=== PATIENT | female | born 1990 | race Caucasian/White ===

== ENCOUNTER 2021-11-09 15:34 | Observation (INO) | payer OTHER ==
[2021-11-09] MEDS ORDERED: Sodium Chloride 0.9% 1000 ML 1,000 ML ONE (16:11)
[2021-11-09] MEDS ORDERED: SUBLIMAZE 100 MCG/2 ML IV ONE (16:11)
[2021-11-09] MEDS ORDERED: Sodium Chloride 0.9% 1000 ML 1,000 ML IV STA (16:11)
[2021-11-09] MEDS ORDERED: Zofran 4 MG/2 ML VIAL IV ONE (16:11)
[2021-11-09] MEDS ORDERED: SUBLIMAZE 100 MCG/2 ML ONE (16:11)
[2021-11-09] MEDS ORDERED: Zofran 4 MG/2 ML VIAL ONE (16:11)
--- NOTE | 2021-11-09 16:18 | ERPHSYRPT ---
- History of Present Illness Exam Limitations: clinical condition <ORALIA MELARA - Last Filed: 11/09/21 22:45> - History of Present Illness Historian: patient Exam Limitations: no limitations Patient Subjective Stated Complaint: Abdominal pain- RUQ pain Triage Nursing Assessment: Patient ambulated back to ED and transferred self to bed. Patient A+O X3. Patient's skin pink, warm and dry. Patient complains of RUQ pain 9/10 constant sharp pain. Rebound tenderness noted to RUQ. Patient complains of nausea and diarrhea. Patient's eye noted to be a yellowish tint. Abdomen soft and round with BS X 4. Timing/Duration: other (2days) Quality: sharpness, stabbing Abdominal Pain Onset Location: RUQ, epigastric Pain Radiation: back Severity of Pain-Max: severe Severity of Pain-Current: severe Modifying Factors: Improves With: vomiting. Worsens With: analgesics, antacids, breathing, coughing, defecating, eating, exercise, lying down, movement, palpation, rest, urinating, position, walking Associated Symptoms: back, loss of appetite, nausea, vomiting, No chest pain, No diaphoresis, No diarrhea, No fever/chills, No fatigue, No headache, No heartburn, No neck pain, No rash, No shortness of breath, No syncope, No weakness Previous symptoms: no prior history Hx Influenza Vaccination/Date Given: No Hx Pneumococcal Vaccination/Date Given: No Immunizations Up to Date: Yes <MICHELLE GOODSON - Last Filed: 11/12/21 07:43> - History of Present Illness Time Seen by Provider: 11/09/21 19:30 Physician History: 31 yo Wf w epigastric/RUQ pain x2 days. Pain is 9/10, described as sharp, w radiation to her back. She has had N/V wo hematemesis/diarrhea/melena/hematochezia/dysuria/hematuria/fever/cough. (MICHELLE GOODSON) Allergies/Adverse Reactions: No Known Drug Allergies Allergy (Unverified 11/09/21 15:53) Home Medications: Levothyroxine Sodium 50 Mcg [Synthroid 50 Mcg] 1 tab PO DAILY 11/09/21 [History] Travel Risk - International Travel Have you traveled outside of the country in past 3 weeks: No - Coronavirus Screening Are you exhibiting any of the following symptoms?: No Close contact with a COVID-19 positive Pt in past 14-21 Days: No - Vaccine Status Have you recieved a Covid-19 vaccination: No <MICHELLE GOODSON - Last Filed: 11/12/21 07:43> - Review of Systems Constitutional: No Symptoms Eyes: No Symptoms Ears, Nose, & Throat: No Symptoms Respiratory: No Symptoms Cardiac: No Symptoms Abdominal/Gastrointestinal: No Symptoms, Abdominal Pain, Nausea, Vomiting Genitourinary Symptoms: No Symptoms Musculoskeletal: No Symptoms Skin: No Symptoms Neurological: No Symptoms Psychological: No Symptoms Endocrine: No Symptoms Hematologic/Lymphatic: No Symptoms Immunological/Allergic: No Symptoms <MICHELLE GOODSON - Last Filed: 11/12/21 07:43> - Past Medical History Pertinent Past Medical History: Yes Neurological History: No Pertinent History Cardiac History: No Pertinent History Respiratory History: No Pertinent History Endocrine Medical History: Hypothyroidism Musculoskeletal History: No Pertinent History GI Medical History: No Pertinent History History: No Pertinent History Psycho-Social History: No Pertinent History Female Reproductive Disorders: No Pertinent History - Past Surgical History Past Surgical History: Yes Neuro Surgical History: No Pertinent History Cardiac: No Pertinent History Respiratory: No Pertinent History Gastrointestinal: Other Genitourinary: No Pertinent History Musculoskeletal: No Pertinent History Female Surgical History: No Pertinent History Other Surgical History: Gastric sleeve 2020 - Social History Smoking Status: Never smoker Exposure to second hand smoke: No Drug Use: none Patient Lives Alone: No Significant Family History: no pertinent family hx - Female History Hx Last Menstrual Period: Currently Hx Now: No <APARNAMICHELLE HEALY - Last Filed: 11/12/21 07:43> - Physical Exam General Appearance: no apparent distress Eye Exam: PERRL/EOMI, eyes nml inspection Ears, Nose, Throat Exam: normal ENT inspection, TMs normal, pharynx normal, moist mucous membranes Neck Exam: normal inspection, non-tender, supple, full range of motion, No meningismus, No mass, No Brudzinski, No Kernig's Respiratory Exam: normal breath sounds, lungs clear, airway intact Cardiovascular Exam: regular rate/rhythm, normal heart sounds, normal peripheral pulses, capillary refill <2 sec, No murmur Gastrointestinal/Abdomen Exam: soft, tenderness (RUQ/epigastric TTP w guarding but no rebound) Back Exam: CVA tenderness (Mild R) Extremity Exam: normal inspection, normal range of motion Neurologic Exam: alert, oriented x 3, cooperative, 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, normal mood/affect, nml cerebellar function, nml station & gait, sensation nml, No motor deficits, No sensory deficit Skin Exam: normal color, warm, dry Lymphatic Exam: No adenopathy SpO2 Interpretation: normal SpO2: 97 O2 Delivery: Room Air <MICHELLE GOODSON - Last Filed: 11/12/21 07:43> - Nursing Vital Signs Nursing Vital Signs: Initial Vital Signs Temperature 98.5 F 11/09/21 15:56 Pulse Rate 69 11/09/21 15:56 Respiratory Rate 18 11/09/21 15:56 Blood Pressure 149/64 11/09/21 15:56 O2 Sat by Pulse Oximetry 97 11/09/21 15:56 Pain Scale Pain Intensity 5 Hypertensive (MICHELLE GOODSON) Ordered Tests: Medication Summary Discontinued Medications Generic Name Dose Route Start Last Admin Trade Name Freq PRN Reason Stop Dose Admin Acetaminophen 650 mg 11/10/21 12:49 11/10/21 13:14 Acetaminophen 325 Mg Tablet PO 12/10/21 12:48 650 mg Q4H PRN PRN Administration MILD PAIN Fentanyl Citrate 100 mcg 11/09/21 16:11 11/09/21 16:21 Fentanyl Citrate 100 Mcg/2 Ml* Vial IV 11/09/21 16:12 100 mcg STAT ONE Administration Fentanyl Citrate Confirm 11/09/21 16:11 Fentanyl Citrate 100 Mcg/2 Ml* Vial Administered 11/09/21 16:12 Dose 100 mcg .ROUTE .STK-MED ONE Hydromorphone HCl 1 mg 11/09/21 17:21 11/09/21 17:23 Hydromorphone 1 Mg/1ml Inj 1 Mg/Ml Syringe IV 11/09/21 17:22 1 mg STAT ONE Administration Hydromorphone HCl Confirm 11/09/21 17:21 Hydromorphone 1 Mg/1ml Inj 1 Mg/Ml Syringe Administered 11/09/21 17:22 Dose 1 mg .ROUTE .STK-MED ONE Hydromorphone HCl 1 mg 11/09/21 23:04 11/10/21 19:27 Hydromorphone 1 Mg/1ml Inj 1 Mg/Ml Syringe IV 11/14/21 23:03 1 mg Q4H PRN PRN Administration PAIN Sodium Chloride 1,000 mls @ 999 mls/hr 11/09/21 16:11 11/09/21 17:22 Sodium Chloride 0.9% 1000 Ml IV 11/09/21 17:11 Infused .Q1H1M STA Infusion Sodium Chloride Confirm 11/09/21 16:11 Sodium Chloride 0.9% 1000 Ml Administered 11/09/21 16:12 Dose 1,000 mls @ ud .ROUTE .STK-MED ONE Piperacillin Sod/Tazobactam 100 mls @ 200 mls/hr 11/09/21 20:48 11/09/21 20:56 Sod 3.375 gm/ Sodium Chloride IV 11/09/21 21:17 200 mls/hr STAT ONE Administration Sodium Chloride Confirm 11/09/21 20:55 Sodium Chloride 0.9% 100 Ml Bag Administered 11/09/21 20:56 Dose 100 mls @ ud .ROUTE .STK-MED ONE Sodium Chloride 1,000 mls @ 100 mls/hr 11/09/21 23:04 11/10/21 22:02 Sodium Chloride 0.9% 1000 Ml IV 12/09/21 23:03 100 mls/hr .Q10H RANDI Administration Piperacillin Sod/Tazobactam 100 mls @ 200 mls/hr 11/10/21 00:00 11/10/21 07:40 Sod 3.375 gm/ Sodium Chloride IV 11/13/21 00:00 Not Given Q6HT RANDI Sodium Chloride Confirm 11/10/21 00:31 Sodium Chloride 100ml Mini-Bag Plus Administered 11/10/21 00:32 Dose 100 mls @ ud IV .STK-MED ONE Piperacillin Sod/Tazobactam 100 mls @ 200 mls/hr 11/10/21 12:00 11/10/21 17:44 Sod 3.375 gm/ Sodium Chloride IV 11/13/21 11:59 200 mls/hr Q6HT RANDI Administration Levothyroxine Sodium 50 mcg 11/10/21 15:00 11/10/21 14:59 Levothyroxine Sodium 50 Mcg Tablet PO 12/10/21 14:59 Not Given DAILY RANDI Ondansetron HCl 4 mg 11/09/21 16:11 11/09/21 16:21 Ondansetron Hcl 4 Mg/2 Ml Vial IV 11/09/21 16:12 4 mg STAT ONE Administration Ondansetron HCl Confirm 11/09/21 16:11 Ondansetron Hcl 4 Mg/2 Ml Vial Administered 11/09/21 16:12 Dose 4 mg .ROUTE .STK-MED ONE Ondansetron HCl 4 mg 11/09/21 23:04 11/10/21 19:27 Ondansetron Hcl 4 Mg/2 Ml Vial IV 12/09/21 23:03 4 mg Q6H PRN PRN Administration NAUSEA/VOMITING Piperacillin Sod/Tazobactam Sod Confirm 11/09/21 20:53 Piperacillin/Tazobactam Sodium 3.375 Gm Vial Administered 11/09/21 20:54 Dose 3.375 gm IV .STK-MED ONE Piperacillin Sod/Tazobactam Sod Confirm 11/10/21 00:31 Piperacillin/Tazobactam Sodium 3.375 Gm Vial Administered 11/10/21 00:32 Dose 3.375 gm IV .STK-MED ONE Lab/Rad Data: Laboratory Result Diagrams 11/09/21 16:20 11/09/21 16:20 Laboratory Results 11/09/21 11/09/21 11/09/21 Range/Units 21:32 16:20 16:20 WBC (4.0-10.5) K/mm3 RBC (4.1-5.4) M/mm3 Hgb (12.0-16.0) gm/dl Hct (35-47) % MCV (78-100) fl MCH (26-32) pg MCHC (32-36) g/dl RDW (11.5-14.0) % Plt Count (150-450) K/mm3 MPV (7.5-11.0) fl Gran % (36.0-66.0) % Eos # (Auto) (0-0.5) Absolute Lymphs (auto) (1.0-4.6) Absolute Monos (auto) (0.0-1.3) Lymphocytes % (24.0-44.0) % Monocytes % (0.0-12.0) % Eosinophils % (0.00-5.0) % Basophils % (0.0-0.4) % Absolute Granulocytes (1.4-6.9) Basophils # (0-0.4) Sodium 138 (137-145) mmol/L Potassium 3.5 (3.5-5.1) mmol/L Chloride 105 (98-107) mmol/L Carbon Dioxide 22 (22-30) mmol/L Anion Gap 14.1 (5-15) MEQ/L BUN 13 (7-17) mg/dL Creatinine 0.73 (0.52-1.04) mg/dL Estimated GFR > 60.0 ML/MIN Glucose 92 (74-106) mg/dL Calcium 8.9 (8.4-10.2) mg/dL Total Bilirubin 1.60 H (0.2-1.3) mg/dL AST 269 H (14-36) U/L ALT 382 H (0-35) U/L Alkaline Phosphatase 176 H (38-126) U/L Troponin I < 0.012 (0.000-0.034) ng/mL Serum Total Protein 7.0 (6.3-8.2) g/dL Albumin 3.9 (3.5-5.0) g/dL Amylase 49 (30-110) U/L Lipase 84 (23-300) U/L Urine Color (YELLOW) Urine Appearance (CLEAR) Urine pH (5-6) Ur Specific [place] (1.005-1.025) Urine Protein (Negative) Urine Ketones (NEGATIVE) Urine Blood (0-5) Bryan/ul Urine Nitrite (NEGATIVE) Urine Bilirubin (NEGATIVE) Urine Urobilinogen (0-1) mg/dL Ur Leukocyte Esterase (NEGATIVE) Urine WBC (Auto) (0-5) /HPF Urine RBC (Auto) (0-2) /HPF U Epithel Cells (Auto) (FEW) /HPF Urine Bacteria (Auto) (NEGATIVE) /HPF Urine Mucus (Auto) (NEGATIVE) /HPF Urine Culture Reflexed (NO) Urine Glucose (NEGATIVE) mg/dL Influenza Type A Ag NEGATIVE (NEGATIVE) Influenza Type B Ag NEGATIVE (NEGATIVE) RSV (PCR) NEGATIVE (Negative) SARS-CoV-2 (PCR) NEGATIVE (NEGATIVE) 11/09/21 11/09/21 Range/Units 16:20 16:19 WBC 8.4 (4.0-10.5) K/mm3 RBC 3.94 L (4.1-5.4) M/mm3 Hgb 11.1 L (12.0-16.0) gm/dl Hct 33.2 L (35-47) % MCV 84.3 (78-100) fl MCH 28.2 (26-32) pg MCHC 33.4 (32-36) g/dl RDW 15.0 H (11.5-14.0) % Plt Count 318 (150-450) K/mm3 MPV 9.4 (7.5-11.0) fl Gran % 74.2 H (36.0-66.0) % Eos # (Auto) 0.05 (0-0.5) Absolute Lymphs (auto) 1.49 (1.0-4.6) Absolute Monos (auto) 0.57 (0.0-1.3) Lymphocytes % 17.8 L (24.0-44.0) % Monocytes % 6.8 (0.0-12.0) % Eosinophils % 0.6 (0.00-5.0) % Basophils % 0.6 (0.0-0.4) % Absolute Granulocytes 6.21 (1.4-6.9) Basophils # 0.05 (0-0.4) Sodium (137-145) mmol/L Potassium (3.5-5.1) mmol/L Chloride (98-107) mmol/L Carbon Dioxide (22-30) mmol/L Anion Gap (5-15) MEQ/L BUN (7-17) mg/dL Creatinine (0.52-1.04) mg/dL Estimated GFR ML/MIN Glucose (74-106) mg/dL Calcium (8.4-10.2) mg/dL Total Bilirubin (0.2-1.3) mg/dL AST (14-36) U/L ALT (0-35) U/L Alkaline Phosphatase (38-126) U/L Troponin I (0.000-0.034) ng/mL Serum Total Protein (6.3-8.2) g/dL Albumin (3.5-5.0) g/dL Amylase (30-110) U/L Lipase (23-300) U/L Urine Color MUNDO (YELLOW) Urine Appearance CLOUDY (CLEAR) Urine pH 5.0 (5-6) Ur Specific [place] 1.030 (1.005-1.025) Urine Protein 30 (Negative) Urine Ketones TRACE (NEGATIVE) Urine Blood LARGE (0-5) Bryan/ul Urine Nitrite NEGATIVE (NEGATIVE) Urine Bilirubin SMALL (NEGATIVE) Urine Urobilinogen 4 (0-1) mg/dL Ur Leukocyte Esterase TRACE (NEGATIVE) Urine WBC (Auto) 6-10 (0-5) /HPF Urine RBC (Auto) 3-5 (0-2) /HPF U Epithel Cells (Auto) RARE (FEW) /HPF Urine Bacteria (Auto) FEW (NEGATIVE) /HPF Urine Mucus (Auto) MANY (NEGATIVE) /HPF Urine Culture Reflexed YES (NO) Urine Glucose NEGATIVE (NEGATIVE) mg/dL Influenza Type A Ag (NEGATIVE) Influenza Type B Ag (NEGATIVE) RSV (PCR) (Negative) SARS-CoV-2 (PCR) (NEGATIVE) - Progress Discussed with : Alfredito Will see patient in: hospital (observation) Counseled pt/family regarding: lab results, diagnosis, rad results <ORALIA MELARA - Last Filed: 11/09/21 22:45> - Progress Progress: improved <MICHELLE GOODSON - Last Filed: 11/12/21 07:43> - Progress Progress Note: Patient endorsed to Dr. Melara at approximately [address] abdomen pelvis reveals new borderline gallbladder wall thickening without stones or biliary distention. Suspected acalculous cholecystitis. Laboratory work-up reveals a transaminitis with elevated total bilirubin and alkaline phosphatase. Urinary tract infection observed as well. Zosyn antibiotic administered. Will contact general surgery and admit to Dr. Torres pending Covid testing 11/09/21 20:[address] Torres accepts admission to observation. Dr. Echevarria accepts consultation. Plan of care discussed with patient. She agrees to [facility] evaluation and treatment. Portions of this note were created with voice recognition technology. There may be grammatical, spelling, punctuation or sound alike errors 11/09/21 22:45 (ORALIA MELARA) 11/09/21 19:13 Fentanyl 100umg IV/4mg IV Zofran 1L NS bolus 1mg IV Dilaudid (MICHELLE GOODSON) - Departure Departure Disposition: Observation Critical Care Time: No <ORALIA MELARA - Last Filed: 11/09/21 22:45> <MICHELLE GOODSON - Last Filed: 11/12/21 07:43> - Departure Clinical Impression: Acute acalculous cholecystitis, Transaminitis, Total bilirubin, elevated, Elevated alkaline phosphatase level, Abdominal pain Urinary tract infection Qualifiers: Urinary tract infection type: acute cystitis Hematuria presence: without hematuria Qualified Code(s): N30.00 - Acute cystitis without hematuria Condition: Stable
[2021-11-09 16:36] LABS: Absolute Neutrophil Ct (ANC) 6.21 (1.4-6.9); Basophil (Absolute #) 0.05 (0-0.4); Eosinophil % 0.6 % (0.00-5.0); Eosinophil (Absolute #) 0.05 (0-0.5); Hematocrit 33.2 % (35-47); Hemoglobin 11.1 gm/dl (12.0-16.0); Lymphocyte (Absolute #) 1.49 (1.0-4.6); Lymphocytes % 17.8 % (24.0-44.0); Mean Cell Volume 84.3 fl (78-100); Mean Corpuscular Hemoglobin 28.2 pg (26-32); Mean Corpuscular Hgb Concent. 33.4 g/dl (32-36); Mean Platelet Volume 9.4 fl (7.5-11.0); Monocyte (Absolute #) 0.57 (0.0-1.3); Monocytes % 6.8 % (0.0-12.0); Neutrophil % 74.2 % (36.0-66.0); Platelet Count 318 K/mm3 (150-450); Red Blood Count 3.94 M/mm3 (4.1-5.4); White Blood Count 8.4 K/mm3 (4.0-10.5)
[2021-11-09 16:50] LABS: Appearance CLOUDY (CLEAR); Bacteria FEW /HPF (NEGATIVE); Bilirubin SMALL (NEGATIVE); Blood LARGE Ery/ul (0-5); Epithelial Cells RARE /HPF (FEW); Glucose NEGATIVE (NEGATIVE); Ketones TRACE (NEGATIVE); Leukocyte Esterase TRACE (NEGATIVE); Mucus MANY /HPF (NEGATIVE); Nitrite NEGATIVE (NEGATIVE); Protein,Urine Dip 30 (Negative); Urobilinogen 4 mg/dL (0-1)
[2021-11-09] MEDS ORDERED: Hydromorphone 1 mg/ml Injection ONE (17:21)
[2021-11-09] MEDS ORDERED: Hydromorphone 1 mg/ml Injection IV ONE (17:21)
[2021-11-09 17:49] LABS: ALBUMIN 3.9 g/dL (3.5-5.0); ALKALINE PHOSPHATASE 176 U/L (38-126); AMYLASE 49 U/L (30-110); ANION GAP 14.1 MEQ/L (5-15); BLOOD UREA NITROGEN 13 mg/dL (7-17); CHLORIDE 105 mmol/L (98-107); Calcium 8.9 mg/dL (8.4-10.2); Carbon Dioxide 22 mmol/L (22-30); Creatinine 1 0.73 mg/dL (0.52-1.04); EST GLOMERULAR FILTRATION RATE > 60.0 ML/MIN; Glucose 92 mg/dL (74-106); LIPASE 84 U/L (23-300); Potassium 3.5 mmol/L (3.5-5.1); SGOT/AST 269 U/L (14-36); SGPT/ALT 382 U/L (0-35); SODIUM 138 mmol/L (137-145)
[2021-11-09] MEDS ORDERED: Zosyn 3.375 GM Vial 3.375 GM in Sodium Chloride 100ML MINI-BAG PLUS 100 ML IV ONE (20:48)
[2021-11-09] MEDS ORDERED: Zosyn 3.375 GM Vial IV ONE (20:53)
[2021-11-09] MEDS ORDERED: Sodium Chloride 0.9% 100 ML BAG 100 ML ONE (20:55)
[2021-11-09 22:15] LABS: INFLUENZA A NEGATIVE (NEGATIVE); INFLUENZA B NEGATIVE (NEGATIVE); RESPIRATORY SYNCTIAL VIRUS NEGATIVE (Negative); SARS-CoV-2 Xpert Express NEGATIVE (NEGATIVE)
[2021-11-09] MEDS: Sodium Chloride 0.9% 1000 ML 1,000 ML IV SCH (23:16)
[2021-11-10] MEDS ORDERED: Zosyn 3.375 GM Vial IV ONE (00:31)
[2021-11-10] MEDS ORDERED: Sodium Chloride 100ML MINI-BAG PLUS 100 ML IV ONE (00:31)
[2021-11-10] MEDS: Zosyn 3.375 GM Vial 3.375 GM in Sodium Chloride 100ML MINI-BAG PLUS 100 ML IV SCH ×4 (03:03→17:44)
[2021-11-10 05:30] LABS: Absolute Neutrophil Ct (ANC) 3.14 (1.4-6.9); Basophil (Absolute #) 0.04 (0-0.4); Eosinophil % 2.2 % (0.00-5.0); Eosinophil (Absolute #) 0.13 (0-0.5); Hematocrit 30.1 % (35-47); Hemoglobin 9.7 gm/dl (12.0-16.0); Lymphocytes % 33.7 % (24.0-44.0); Mean Cell Volume 86.5 fl (78-100); Mean Corpuscular Hemoglobin 27.9 pg (26-32); Mean Corpuscular Hgb Concent. 32.2 g/dl (32-36); Mean Platelet Volume 9.3 fl (7.5-11.0); Monocyte (Absolute #) 0.62 (0.0-1.3); Monocytes % 10.5 % (0.0-12.0); Neutrophil % 52.9 % (36.0-66.0); Platelet Count 248 K/mm3 (150-450); Red Blood Count 3.48 M/mm3 (4.1-5.4); Red Cell Distribution Width 15.2 % (11.5-14.0); White Blood Count 5.9 K/mm3 (4.0-10.5)
[2021-11-10 06:01] LABS: ALBUMIN 3.2 g/dL (3.5-5.0); ALKALINE PHOSPHATASE 148 U/L (38-126); ANION GAP 10.9 MEQ/L (5-15); BLOOD UREA NITROGEN 10 mg/dL (7-17); CHLORIDE 106 mmol/L (98-107); Calcium 8.3 mg/dL (8.4-10.2); Carbon Dioxide 24 mmol/L (22-30); EST GLOMERULAR FILTRATION RATE > 60.0 ML/MIN; Glucose 72 mg/dL (74-106); Potassium 3.3 mmol/L (3.5-5.1); SGOT/AST 162 U/L (14-36); SGPT/ALT 290 U/L (0-35); SODIUM 138 mmol/L (137-145); Total Protein 6.3 g/dL (6.3-8.2)
--- NOTE | 2021-11-10 08:41 | XRAY ---
Indication: Right upper quadrant pain, nausea, vomiting, diarrhea. Multiple contiguous axial images obtained through the abdomen and pelvis using 80 cc Isovue 370 contrast. Comparison: May 23, 2021. Lung bases remain clear again with incidental tiny right costophrenic angle calcified granuloma. Heart not enlarged. Again bariatric surgery. Noncontrasted stomach and bowel loops nonobstructed with normal appendix. Gallbladder normally distended with new borderline wall thickening but no gallstones or biliary distention. Again small cul-de-sac fluid presumed physiologic from rupture/leaking cyst. No free air. New tampon in situ. Remaining liver, pancreas, spleen, adrenal glands, kidneys, ureters, bladder, uterus, and aorta are unremarkable. No pathologic retroperitoneal lymphadenopathy. Osseous structures intact. Impression: 1. New borderline gallbladder wall thickening without gallstones. Gallbladder sonogram may yield further information. 2. Again small cul-de-sac physiologic free fluid and tiny right costophrenic angle calcified granuloma.
[2021-11-10] MEDS: Hydromorphone 1 mg/ml Injection IV PRN ×2 (08:52→19:27)
[2021-11-10] MEDS: Zofran 4 MG/2 ML VIAL IV PRN ×2 (08:52→19:27)
[2021-11-10] MEDS: Sodium Chloride 0.9% 1000 ML 1,000 ML IV SCH ×2 (08:55→22:02)
--- NOTE | 2021-11-10 12:16 | PCM.HP ---
History of Present Illness - Chief Complaint Chief Complaint: Acalculous cholecystits History of Present Illness: is a 31 year old female who came to ER with RUQ pain. She was found to have acalculous cholecystitis with obstruction and was admitted on IV zosyn and IV dilaudid with a surgery consult. She started having pain 3d ago; had RUQ pain 10/10 radiating to the back, sharp, for about 12h. She then had less pain until 3pm yesterday when the pain returned and she decided to come to the ER./ She c/o N/V. Very little po intake over the past 3d with dark urine. - Review of Systems Abdominal/Gastrointestinal: Abdominal Pain, Nausea, Vomiting, Appetite Changes, Other (yellow stools) All Other Systems: Reviewed and Negative Medications & Allergies Home Medications: Home Medication List Levothyroxine Sodium 50 Mcg [Synthroid 50 Mcg] 1 tab PO DAILY 11/09/21 [History Confirmed 11/09/21] Allergies/Adverse Reactions: Allergies Allergy/AdvReac Type Severity Reaction Status Date / Time No Known Drug Allergies Allergy Unverified 11/09/21 15:53 - Past Medical History Past Medical History: Yes Neurological History: No Pertinent History Cardiac History: No Pertinent History Respiratory History: No Pertinent History Endocrine Medical History: Hypothyroidism Musculoskelatal History: No Pertinent History GI Medical History: No Pertinent History History: No Pertinent History Pyscho-Social History: No Pertinent History Reproductive Disorders: No Pertinent History - Female History Hx Last Menstrual Period: Currently Are you now?: No - Past Surgical History Past Surgical History: Yes Neuro Surgical History: No Pertinent History Cardiac History: No Pertinent History Respiratory Surgery: No Pertinent History GI Surgical History: Other Genitourinary Surgical Hx: No Pertinent History Musculskeletal Surgical Hx: No Pertinent History Female Surgical History: No Pertinent History Other Surgical History: Gastric sleeve 2020 - Social History Smoking Status: Never smoker Exposure to second hand smoke: No Alcohol: Rarely Drug Use: none Significant Family History: no pertinent family hx - Physical Exam Vital Signs: Vital Signs - 24 hr Temp Pulse Resp BP Pulse Ox 11/10/21 08:00 97.3 F 62 14 107/63 100 11/10/21 07:25 98 11/10/21 04:07 97.6 F 77 16 110/70 97 11/10/21 00:38 96 03/18/22 00:00 97 11/09/21 23:24 97.7 F 60 17 122/67 98 11/09/21 22:00 55 L 18 111/64 11/09/21 21:00 121/67 11/09/21 19:14 97 11/09/21 18:37 67 18 94/63 100 11/09/21 17:26 67 18 119/50 100 11/09/21 15:56 98.5 F 69 18 149/64 97 General Appearance: no apparent distress, alert, other (just received dilauded and pain is 0/10) Neurologic Exam: oriented x 3, cooperative Eye Exam: eyes nml inspection Ears, Nose, Throat Exam: moist mucous membranes Respiratory Exam: normal breath sounds, lungs clear, No crackles/rales, No rhonchi, No wheezing Cardiovascular Exam: regular rate/rhythm, normal heart sounds, No murmur Gastrointestinal/Abdomen Exam: soft, normal bowel sounds, tenderness (mild RUQ), No distention, No mass, No guarding, No rebound Back Exam: normal inspection, No CVA tenderness, No rash Extremity Exam: normal inspection, No pedal edema, No swelling Skin Exam: normal color, warm, dry, No rash Results - Labs Lab/Micro Results: Lab Results-Last 24 Hours 11/09/21 11/09/21 11/09/21 Range/Units 16:19 16:20 16:20 WBC 8.4 (4.0-10.5) K/mm3 RBC 3.94 L (4.1-5.4) M/mm3 Hgb 11.1 L (12.0-16.0) gm/dl Hct 33.2 L (35-47) % MCV 84.3 (78-100) fl MCH 28.2 (26-32) pg MCHC 33.4 (32-36) g/dl RDW 15.0 H (11.5-14.0) % Plt Count 318 (150-450) K/mm3 MPV 9.4 (7.5-11.0) fl Gran % 74.2 H (36.0-66.0) % Eos # (Auto) 0.05 (0-0.5) Absolute Lymphs (auto) 1.49 (1.0-4.6) Absolute Monos (auto) 0.57 (0.0-1.3) Lymphocytes % 17.8 L (24.0-44.0) % Monocytes % 6.8 (0.0-12.0) % Eosinophils % 0.6 (0.00-5.0) % Basophils % 0.6 (0.0-0.4) % Absolute Granulocytes 6.21 (1.4-6.9) Basophils # 0.05 (0-0.4) Sodium 138 (137-145) mmol/L Potassium 3.5 (3.5-5.1) mmol/L Chloride 105 (98-107) mmol/L Carbon Dioxide 22 (22-30) mmol/L Anion Gap 14.1 (5-15) MEQ/L BUN 13 (7-17) mg/dL Creatinine 0.73 (0.52-1.04) mg/dL Estimated GFR > 60.0 ML/MIN Glucose 92 (74-106) mg/dL Calcium 8.9 (8.4-10.2) mg/dL Total Bilirubin 1.60 H (0.2-1.3) mg/dL AST 269 H (14-36) U/L ALT 382 H (0-35) U/L Alkaline Phosphatase 176 H (38-126) U/L Troponin I (0.000-0.034) ng/mL Serum Total Protein 7.0 (6.3-8.2) g/dL Albumin 3.9 (3.5-5.0) g/dL Amylase 49 (30-110) U/L Lipase 84 (23-300) U/L Serum , Qual (Negative) Urine Color MUNDO (YELLOW) Urine Appearance CLOUDY (CLEAR) Urine pH 5.0 (5-6) Ur Specific [place] 1.030 (1.005-1.025) Urine Protein 30 (Negative) Urine Ketones TRACE (NEGATIVE) Urine Blood LARGE (0-5) Bryan/ul Urine Nitrite NEGATIVE (NEGATIVE) Urine Bilirubin SMALL (NEGATIVE) Urine Urobilinogen 4 (0-1) mg/dL Ur Leukocyte Esterase TRACE (NEGATIVE) Urine WBC (Auto) 6-10 (0-5) /HPF Urine RBC (Auto) 3-5 (0-2) /HPF U Epithel Cells (Auto) RARE (FEW) /HPF Urine Bacteria (Auto) FEW (NEGATIVE) /HPF Urine Mucus (Auto) MANY (NEGATIVE) /HPF Urine Culture Reflexed YES (NO) Urine Glucose NEGATIVE (NEGATIVE) mg/dL Influenza Type A Ag (NEGATIVE) Influenza Type B Ag (NEGATIVE) RSV (PCR) (Negative) SARS-CoV-2 (PCR) (NEGATIVE) 11/09/21 11/09/21 11/09/21 Range/Units 16:20 21:32 Unknown WBC (4.0-10.5) K/mm3 RBC (4.1-5.4) M/mm3 Hgb (12.0-16.0) gm/dl Hct (35-47) % MCV (78-100) fl MCH (26-32) pg MCHC (32-36) g/dl RDW (11.5-14.0) % Plt Count (150-450) K/mm3 MPV (7.5-11.0) fl Gran % (36.0-66.0) % Eos # (Auto) (0-0.5) Absolute Lymphs (auto) (1.0-4.6) Absolute Monos (auto) (0.0-1.3) Lymphocytes % (24.0-44.0) % Monocytes % (0.0-12.0) % Eosinophils % (0.00-5.0) % Basophils % (0.0-0.4) % Absolute Granulocytes (1.4-6.9) Basophils # (0-0.4) Sodium (137-145) mmol/L Potassium (3.5-5.1) mmol/L Chloride (98-107) mmol/L Carbon Dioxide (22-30) mmol/L Anion Gap (5-15) MEQ/L BUN (7-17) mg/dL Creatinine (0.52-1.04) mg/dL Estimated GFR ML/MIN Glucose (74-106) mg/dL Calcium (8.4-10.2) mg/dL Total Bilirubin (0.2-1.3) mg/dL AST (14-36) U/L ALT (0-35) U/L Alkaline Phosphatase (38-126) U/L Troponin I < 0.012 (0.000-0.034) ng/mL Serum Total Protein (6.3-8.2) g/dL Albumin (3.5-5.0) g/dL Amylase (30-110) U/L Lipase (23-300) U/L Serum , Qual NEGATIVE (Negative) Urine Color (YELLOW) Urine Appearance (CLEAR) Urine pH (5-6) Ur Specific [place] (1.005-1.025) Urine Protein (Negative) Urine Ketones (NEGATIVE) Urine Blood (0-5) Bryan/ul Urine Nitrite (NEGATIVE) Urine Bilirubin (NEGATIVE) Urine Urobilinogen (0-1) mg/dL Ur Leukocyte Esterase (NEGATIVE) Urine WBC (Auto) (0-5) /HPF Urine RBC (Auto) (0-2) /HPF U Epithel Cells (Auto) (FEW) /HPF Urine Bacteria (Auto) (NEGATIVE) /HPF Urine Mucus (Auto) (NEGATIVE) /HPF Urine Culture Reflexed (NO) Urine Glucose (NEGATIVE) mg/dL Influenza Type A Ag NEGATIVE (NEGATIVE) Influenza Type B Ag NEGATIVE (NEGATIVE) RSV (PCR) NEGATIVE (Negative) SARS-CoV-2 (PCR) NEGATIVE (NEGATIVE) 11/10/21 11/10/21 Range/Units 05:10 05:10 WBC 5.9 (4.0-10.5) K/mm3 RBC 3.48 L (4.1-5.4) M/mm3 Hgb 9.7 L (12.0-16.0) gm/dl Hct 30.1 L (35-47) % MCV 86.5 (78-100) fl MCH 27.9 (26-32) pg MCHC 32.2 (32-36) g/dl RDW 15.2 H (11.5-14.0) % Plt Count 248 (150-450) K/mm3 MPV 9.3 (7.5-11.0) fl Gran % 52.9 (36.0-66.0) % Eos # (Auto) 0.13 (0-0.5) Absolute Lymphs (auto) 2.00 (1.0-4.6) Absolute Monos (auto) 0.62 (0.0-1.3) Lymphocytes % 33.7 (24.0-44.0) % Monocytes % 10.5 (0.0-12.0) % Eosinophils % 2.2 (0.00-5.0) % Basophils % 0.7 (0.0-0.4) % Absolute Granulocytes 3.14 (1.4-6.9) Basophils # 0.04 (0-0.4) Sodium 138 (137-145) mmol/L Potassium 3.3 L (3.5-5.1) mmol/L Chloride 106 (98-107) mmol/L Carbon Dioxide 24 (22-30) mmol/L Anion Gap 10.9 (5-15) MEQ/L BUN 10 (7-17) mg/dL Creatinine 0.80 (0.52-1.04) mg/dL Estimated GFR > 60.0 ML/MIN Glucose 72 L (74-106) mg/dL Calcium 8.3 L (8.4-10.2) mg/dL Total Bilirubin 1.20 (0.2-1.3) mg/dL AST 162 H (14-36) U/L ALT 290 H (0-35) U/L Alkaline Phosphatase 148 H (38-126) U/L Troponin I (0.000-0.034) ng/mL Serum Total Protein 6.3 (6.3-8.2) g/dL Albumin 3.2 L (3.5-5.0) g/dL Amylase (30-110) U/L Lipase (23-300) U/L Serum , Qual (Negative) Urine Color (YELLOW) Urine Appearance (CLEAR) Urine pH (5-6) Ur Specific [place] (1.005-1.025) Urine Protein (Negative) Urine Ketones (NEGATIVE) Urine Blood (0-5) Bryan/ul Urine Nitrite (NEGATIVE) Urine Bilirubin (NEGATIVE) Urine Urobilinogen (0-1) mg/dL Ur Leukocyte Esterase (NEGATIVE) Urine WBC (Auto) (0-5) /HPF Urine RBC (Auto) (0-2) /HPF U Epithel Cells (Auto) (FEW) /HPF Urine Bacteria (Auto) (NEGATIVE) /HPF Urine Mucus (Auto) (NEGATIVE) /HPF Urine Culture Reflexed (NO) Urine Glucose (NEGATIVE) mg/dL Influenza Type A Ag (NEGATIVE) Influenza Type B Ag (NEGATIVE) RSV (PCR) (Negative) SARS-CoV-2 (PCR) (NEGATIVE) Microbiology 11/09/21 16:19 Urine Culture - Preliminary Urine, Void NO GROWTH TO DATE - Radiology Impressions Radiology Exams & Impressions: Radiology Procedures Category Date Time Status ABDOMEN AND PELVIS W CONTRAST [CT] Stat Exams 11/09/21 18:03 Completed MRI ABD W/O CONTRAST [MRI] Routine Exams 11/10/21 06:47 Ordered Assessment/Plan (1) Acute acalculous cholecystitis Current Visit: Yes Status: Acute Assessment & Plan: Surgery consulted, thank you. Pain controlled with dilaudid. On zosyn day #2. Code(s): K81.0 - ACUTE CHOLECYSTITIS (2) Elevated alkaline phosphatase level Current Visit: Yes Status: Acute Assessment & Plan: improved. Code(s): R74.8 - ABNORMAL LEVELS OF OTHER SERUM ENZYMES (3) Transaminitis Current Visit: Yes Status: Acute Assessment & Plan: improved Code(s): R74.01 - ELEVATION OF LEVELS OF LIVER TRANSAMINASE LEVELS (4) Urinary tract infection Current Visit: Yes Status: Acute Qualifiers: Urinary tract infection type: acute cystitis Hematuria presence: without hematuria Qualified Code(s): N30.00 - Acute cystitis without hematuria Assessment & Plan: on IV zosyn Code(s): N39.0 - URINARY TRACT INFECTION, SITE NOT SPECIFIED
[2021-11-10] MEDS ORDERED: TYLENOL 325 MG PO PRN (12:49)
--- NOTE | 2021-11-10 14:42 | XRAY ---
Indication: Right upper quadrant pain. Nausea and vomiting. Abnormal gallbladder on CT one day earlier. Conventional MRCP performed. Comparison: None Common bile duct normal in course and caliber up to 5 mm diameter. Common bile duct also demonstrates 2-3 mm choledochal stone. No intrahepatic biliary or pancreatic duct distention. Gallbladder normally distended with multiple tiny intraluminal gallstones largest 5 mm, wall thickening up to 5-6 mm, and very tiny pericholecystic fluid favoring acute cholecystitis. Visualized liver, pancreas, spleen, adrenal glands, kidneys, proximal ureters, stomach, bowel loops, aorta, and IVC are unremarkable. No abnormal bone marrow signal. Impression: 1. Tiny choledochal stone distal common bile duct. 2. Multiple tiny gallstones with gallbladder wall thickening and pericholecystic fluid favoring acute cholecystitis.
[2021-11-10] MEDS ORDERED: SYNTHROID 50 MCG PO SCH (15:00)
[2021-11-10 16:13] VITALS: PULSE 53
[2021-11-10 19:47] VITALS: BP 109/56
[2021-11-11 11:08] LABS: HBsAg Screen Negative (Negative); Hep A Ab, IgM Negative (Negative); Hep B Core Ab, IgM Negative (Negative)
[2021-11-11 14:27] LABS: Hep C Virus Ab 5.2 s/co ratio (0.0-0.9)
[2021-11-12 07:44] VITALS: O2SAT 97
== END 2021-11-10 22:30 | disposition short-term general hospital (02) ==
LOC: ED 15:34 → MED SURG 23:00
PROVIDERS: ADMIT Family Medicine; ATTEND Family Medicine
DX: K81.0 Acute cholecystitis (principal); R74.8 Abnormal levels of other serum enzymes; R74.01 Elevation of levels of liver transaminase levels; N30.00 Acute cystitis without hematuria; E03.9 Hypothyroidism, unspecified; Z79.899 Other long term (current) drug therapy; Z20.828 Contact with and (suspected) exposure to other viral communicable diseases
CPT/HCPCS: 0241U; 36000; 36415; 74177; 74181; 80053; 80074; 81001; 81025; 82150; 83690; 84484; 85025; 87086; 93268; 96374; 96375; 99285; G0378; J1170; J2405; J3010; A9270-GY